=== PATIENT | female | born 1995 | race American Indian/Alaskan Native ===

== ENCOUNTER 2022-04-16 11:28 | Emergency (ER) | payer SELFPAY ==
[2022-04-16] MEDS ORDERED: KETOROLAC 10 MG TAB PO ONE ×2 (12:11→15:00)
[2022-04-16] MEDS ORDERED: oxyCODONE /ACETAMINOPHEN 5-325MG TAB PO ONE ×2 (12:12→15:00)
[2022-04-16] MEDS ORDERED: dexAMETHasone 4 MG/ML VIAL PO ONE ×2 (12:12→15:00)
[2022-04-16] MEDS ORDERED: AMOXICILLIN/K CLAV 875/125MG TAB PO ONE ×2 (12:12→15:00)
--- NOTE | 2022-04-16 12:56 | Emergency Department Report ---
ED ENT HPI - General Chief complaint: Sore Throat Stated complaint: MOUTH/THROAT INFECTION Time Seen by Provider: 04/16/22 12:10 Source: patient Mode of arrival: Ambulatory Limitations: No Limitations - History of Present Illness Initial comments: 26-year-old black female with no past medical history presents to the emergency department for evaluation of tooth ache with pain and swelling to left side of jaw. She states that she has an impacted wisdom tooth but has not been able to get it taken out. She denies fever. MD complaint: tooth pain -: Gradual, days(s) (2-3) Location: tooth # (17) Severity: severe Severity scale (0 -10): 10 Quality: aching Consistency: constant Associated Symptoms: gum swelling, toothache, sore throat. denies: fever, cough, pain with swallowing, tinnitus, hearing loss, discharge from ear, rhinorrhea - Related Data Previous Rx's Medication Instructions Recorded Last Taken Type Acetaminophen/Codeine [Tylenol 1 tab PO Q6H PRN #12 tab 04/16/22 Unknown Rx /Codeine # 3 tab] Amoxicillin/K Clav Tab [Augmentin 1 tab PO BID #14 tab 04/16/22 Unknown Rx 875 mg] Ketorolac [Toradol] 10 mg PO Q6H PRN #12 04/16/22 Unknown Rx Allergies Allergy/AdvReac Type Severity Reaction Status Date / Time No Known Allergies Allergy Verified 04/16/22 14:20 ED Dental HPI - General Chief complaint: Sore Throat Stated complaint: MOUTH/THROAT INFECTION Time Seen by Provider: 04/16/22 12:10 Source: patient Mode of arrival: Ambulatory Limitations: No Limitations - History of Present Illness Dental Associated Symptons: Yes: Headache, Earache, Sore Throat, Gum Swelling. No: Fever - Related Data Previous Rx's Medication Instructions Recorded Last Taken Type Acetaminophen/Codeine [Tylenol 1 tab PO Q6H PRN #12 tab 04/16/22 Unknown Rx /Codeine # 3 tab] Amoxicillin/K Clav Tab [Augmentin 1 tab PO BID #14 tab 04/16/22 Unknown Rx 875 mg] Ketorolac [Toradol] 10 mg PO Q6H PRN #12 04/16/22 Unknown Rx Allergies Allergy/AdvReac Type Severity Reaction Status Date / Time No Known Allergies Allergy Verified 04/16/22 14:20 ED Review of Systems ROS: Stated complaint: MOUTH/THROAT INFECTION Other details as noted in HPI Comment: All other systems reviewed and negative Constitutional: denies: chills, fever, malaise, weakness Eyes: denies: vision change ENT: throat pain, dental pain Respiratory: denies: shortness of breath Cardiovascular: denies: chest pain, palpitations Gastrointestinal: denies: abdominal pain, nausea, vomiting Musculoskeletal: denies: back pain Skin: denies: rash Neurological: denies: headache, weakness ED Past Medical Hx - Past Medical History Previous Medical History?: No - Surgical History Past Surgical History?: No - Social History Smoking Status: Never Smoker - Medications Home Medications: Home Medications Medication Instructions Recorded Confirmed Last Taken Type Acetaminophen/Codeine [Tylenol 1 tab PO Q6H PRN #12 tab 04/16/22 Unknown Rx /Codeine # 3 tab] Amoxicillin/K Clav Tab [Augmentin 1 tab PO BID #14 tab 04/16/22 Unknown Rx 875 mg] Ketorolac [Toradol] 10 mg PO Q6H PRN #12 04/16/22 Unknown Rx ED Physical Exam - General Limitations: No Limitations General appearance: alert, in no apparent distress - Head Head exam: Present: atraumatic, normocephalic - Eye Eye exam: Present: normal appearance. Absent: conjunctival injection - Expanded ENT Exam Expanded Teeth exam: Present: dental tenderness # (17), gingival enlargement, other (Erythema, swelling, and abscess noted to gums around tooth #17) - Neck Neck exam: Present: normal inspection. Absent: lymphadenopathy - Respiratory Respiratory exam: Present: normal lung sounds bilaterally. Absent: respiratory distress, wheezes, rales, rhonchi, stridor - Cardiovascular Cardiovascular Exam: Present: regular rate, normal heart sounds - GI/Abdominal GI/Abdominal exam: Present: soft, normal bowel sounds. Absent: distended, tenderness, guarding, rebound, rigid - Back Exam Back exam: Present: normal inspection - Neurological Exam Neurological exam: Present: alert, oriented X3, normal gait - Psychiatric Psychiatric exam: Present: normal affect, normal mood - Skin Skin exam: Present: warm, dry, intact, normal color ED Course Vital Signs 04/16/22 04/16/22 12:08 16:09 Temperature 98.7 F 98.4 F Pulse Rate 95 H 64 Respiratory 14 16 Rate Blood Pressure 131/89 Blood Pressure 136/88 [Left] O2 Sat by Pulse 98 100 Oximetry ED Medical Decision Making - Medical Decision Making 26-year-old black female with no past medical history presents to the emergency department for evaluation of tooth ache with pain and swelling to left side of jaw. She states that she has an impacted wisdom tooth but has not been able to get it taken out. She denies fever. Exam consistent with dental abscess. Patient will be treated with 7-day course of Augmentin along with Toradol and Tylenol to use as needed for pain. She is advised to follow-up with dentist for further evaluation and management and return to the emergency department as needed. She verbalizes understanding of and agreement with plan of care. Critical care attestation.: If time is entered above; I have spent that time in minutes in the direct care of this critically ill patient, excluding procedure time. ED Disposition Clinical Impression: Dental abscess Disposition: 01 HOME / SELF CARE / HOMELESS Is pt being admited?: No Does the pt Need Aspirin: No Condition: Stable Instructions: Dental Abscess, [id number] Additional Instructions: Take medications as prescribed. Follow-up with dentist for further evaluation and management. Return to the emergency department as needed. Prescriptions: Amoxicillin/K Clav Tab [Augmentin 875 mg] 1 tab PO BID #14 tab Ketorolac [Toradol] 10 mg PO Q6H PRN #12 PRN Reason: Pain Acetaminophen/Codeine [Tylenol /Codeine # 3 tab] 1 tab PO Q6H PRN #12 tab PRN Reason: Pain , Severe (7-10) Referrals: [facility] [Outside] - 3-5 Days [facility] [Outside] - 3-5 Days Forms: Work/School Release Form(ED) Time of Disposition: 12:56
[2022-04-16 16:11] VITALS: BP 136/88
== END 2022-04-16 16:09 | disposition home or self-care (01) ==
LOC: ED 11:28
DX: K04.7 Periapical abscess without sinus (principal); Z79.899 Other long term (current) drug therapy
CPT/HCPCS: 99282; J1100

== ENCOUNTER 2022-04-25 15:11 | Emergency (ER) | payer SELFPAY ==
[2022-04-25 16:33] VITALS: BP 146/88
--- NOTE | 2022-04-25 18:26 | Emergency Department Report ---
- General Chief Complaint: Upper Respiratory Infection Stated Complaint: FLU SYMPTOMS Time Seen by Provider: 04/25/22 17:39 Source: patient Mode of arrival: Ambulatory Limitations: No Limitations - History of Present Illness Initial Comments: Diagnosed with pharyngitis on 16 April took a round of amoxicillin which did cause little little diarrhea and upset stomach which is now resolved during that time she missed few days of work and presents emerged department seeking work note primarily. Has some mild congestion but no hemoptysis no hematemesis hematochezia, no headache no fever, chills, sweats. MD Complaint: sore throat, nasal congestion Improves With: nothing Worsens With: nothing Associated Symptoms: sore throat Treatments Prior to Arrival: antibiotics - Related Data Previous Rx's Medication Instructions Recorded Last Taken Type Acetaminophen/Codeine [Tylenol 1 tab PO Q6H PRN #12 tab 04/16/22 Unknown Rx /Codeine # 3 tab] Amoxicillin/K Clav Tab [Augmentin 1 tab PO BID #14 tab 04/16/22 Unknown Rx 875 mg] Ketorolac [Toradol] 10 mg PO Q6H PRN #12 04/16/22 Unknown Rx Allergies Allergy/AdvReac Type Severity Reaction Status Date / Time No Known Allergies Allergy Verified 04/16/22 14:20 ED Review of Systems ROS: Stated complaint: FLU SYMPTOMS Other details as noted in HPI Comment: All other systems reviewed and negative ED Past Medical Hx - Social History Smoking Status: Never Smoker - Medications Home Medications: Home Medications Medication Instructions Recorded Confirmed Last Taken Type Acetaminophen/Codeine [Tylenol 1 tab PO Q6H PRN #12 tab 04/16/22 Unknown Rx /Codeine # 3 tab] Amoxicillin/K Clav Tab [Augmentin 1 tab PO BID #14 tab 04/16/22 Unknown Rx 875 mg] Ketorolac [Toradol] 10 mg PO Q6H PRN #12 04/16/22 Unknown Rx ED Physical Exam - General Limitations: No Limitations ED Course Vital Signs 04/25/22 16:29 Temperature 98.0 F Pulse Rate 62 Blood Pressure 146/88 [Left] O2 Sat by Pulse 100 Oximetry ED Medical Decision Making - Medical Decision Making This 26-year-old patient presents with symptoms suspicious for likely viral upper respiratory tract infection. Differential includes bacterial pneumonia, sinusitis, allergic rhinitis, URI. Do not suspect underlying Cardiopulmonary process. I considered but think unlikely dangerous cause of this patient symptoms to include acute coronary syndrome, CHF or COPD exacerbations, pneumonia, pneumothorax. Patient is nontoxic appearing and not in need of emergent medical intervention. Plan: Reassurance, reassessment, [id number] medications, discharge with P CP follow-up Critical care attestation.: If time is entered above; I have spent that time in minutes in the direct care of this critically ill patient, excluding procedure time. ED Disposition Clinical Impression: URI (upper respiratory infection) Disposition: 01 HOME / SELF CARE / HOMELESS Is pt being admited?: No Does the pt Need Aspirin: No Condition: Stable Instructions: Cool Mist Vaporizer, Upper Respiratory Infection, Adult Referrals: [facility] [Provider Group] - 3-5 Days Forms: Work/School Release Form(ED)
== END 2022-04-25 19:50 | disposition home or self-care (01) ==
LOC: ED 15:11
DX: J06.9 Acute upper respiratory infection, unspecified (principal)
CPT/HCPCS: 99282

== ENCOUNTER 2022-05-01 14:04 | Emergency (ER) | payer SELFPAY ==
[2022-05-01 16:12] VITALS: BP 116/75
[2022-05-01 18:24] LABS: HCG Qualitative,Urine Negative (Negative)
[2022-05-01 18:34] LABS: Bacteria,Urine 1+ /HPF (Negative); Mucus,Urine FEW /HPF
[2022-05-01 18:51] LABS: Color,Urine Straw (Yellow)
--- NOTE | 2022-05-01 18:56 | Emergency Department Report ---
ED Female HPI - General Chief complaint: Urogenital-Female Stated complaint: BLOOD IN URINE/PAIN Time Seen by Provider: 05/01/22 16:36 Source: patient Mode of arrival: Ambulatory Limitations: No Limitations - History of Present Illness Initial comments: 26-year-old female presents with urinary frequency and pain x2 days. Denies being , denies any vaginal discharge, no nausea or vomiting, no flank pain, no hematuria, no fever chills, no chest pain no cough cold congestion headache weakness dizziness or any other associating symptoms. - Related Data Previous Rx's Medication Instructions Recorded Last Taken Type Acetaminophen/Codeine [Tylenol 1 tab PO Q6H PRN #12 tab 04/16/22 Unknown Rx /Codeine # 3 tab] Amoxicillin/K Clav Tab [Augmentin 1 tab PO BID #14 tab 05/01/22 Unknown Rx 875MG TAB] Ketorolac [Toradol] 10 mg PO Q6H PRN #12 05/01/22 Unknown Rx Phenazopyridine [Pyridium] 200 mg PO BID #6 tab 05/01/22 Unknown Rx Allergies Allergy/AdvReac Type Severity Reaction Status Date / Time No Known Allergies Allergy Verified 04/16/22 14:20 ED Review of Systems ROS: Stated complaint: BLOOD IN URINE/PAIN Other details as noted in HPI Cardiovascular: as per HPI Gastrointestinal: as per HPI. denies: abdominal pain, nausea, vomiting Genitourinary: urgency, dysuria Musculoskeletal: denies: back pain Neurological: denies: headache, weakness ED Past Medical Hx - Social History Smoking Status: Never Smoker - Medications Home Medications: Home Medications Medication Instructions Recorded Confirmed Last Taken Type Acetaminophen/Codeine [Tylenol 1 tab PO Q6H PRN #12 tab 04/16/22 Unknown Rx /Codeine # 3 tab] Amoxicillin/K Clav Tab [Augmentin 1 tab PO BID #14 tab 05/01/22 Unknown Rx 875MG TAB] Ketorolac [Toradol] 10 mg PO Q6H PRN #12 05/01/22 Unknown Rx Phenazopyridine [Pyridium] 200 mg PO BID #6 tab 05/01/22 Unknown Rx ED Physical Exam - General Limitations: No Limitations General appearance: alert, in no apparent distress - Head Head exam: Present: atraumatic - Eye Eye exam: Present: normal appearance - ENT ENT exam: Present: normal exam, normal orophraynx - Neck Neck exam: Present: normal inspection. Absent: tenderness - Respiratory Respiratory exam: Present: normal lung sounds bilaterally. Absent: respiratory distress, chest wall tenderness - Cardiovascular Cardiovascular Exam: Present: regular rate, normal rhythm - GI/Abdominal GI/Abdominal exam: Present: soft. Absent: distended, tenderness - Extremities Exam Extremities exam: Present: normal inspection, full ROM - Back Exam Back exam: Present: normal inspection, full ROM. Absent: tenderness, CVA tenderness (R), CVA tenderness (L) - Neurological Exam Neurological exam: Present: alert, oriented X3, normal gait - Psychiatric Psychiatric exam: Present: normal affect, normal mood - Skin Skin exam: Present: warm, dry, intact ED Course Vital Signs 05/01/22 16:05 Temperature 98.9 F Pulse Rate 67 Respiratory 14 Rate Blood Pressure 116/75 [Right] O2 Sat by Pulse 100 Oximetry ED Medical Decision Making - Lab Data Laboratory Results - last 24 hr 05/01/22 17:50 Urine Color Straw Urine Turbidity Hazy Specific [place] (Man) 1.005 Ur Protein (Man) 2+ Ur Ketones (Man) Negative Urine Bilirubin (Man) Negative Urine WBC (Auto) 96.0 H Urine RBC (Auto) 16.0 U Epithel Cells (Auto) 1.0 Urine Bacteria (Auto) 1+ Urine RBC (Manual) 4+ Urine Mucus Few Urine HCG, Qual Negative - Medical Decision Making 26-year-old female presents with urinary frequency and pain x2 days. Denies being , denies any vaginal discharge, no nausea or vomiting, no flank pain, no hematuria, no fever chills, no chest pain no cough cold congestion headache weakness dizziness or any other associating symptoms. Urinalysis is positive for leukocytes, WBC, bacteria, RBC, coupled with her symptoms we will treat for acute cystitis with Augmentin, urine culture, and outpatient follow-up with Unable to locate patient left before properly [id number] Critical care attestation.: If time is entered above; I have spent that time in minutes in the direct care of this critically ill patient, excluding procedure time. ED Disposition Clinical Impression: Acute cystitis Disposition: HOME / SELF CARE / HOMELESS Is pt being admited?: No Does the pt Need Aspirin: No Condition: Stable Instructions: Urinary Tract Infection, Adult Prescriptions: Amoxicillin/K Clav Tab [Augmentin 875MG TAB] 1 tab PO BID #14 tab Ketorolac [Toradol] 10 mg PO Q6H PRN #12 PRN Reason: Pain
== END 2022-05-01 19:33 | disposition left against medical advice (07) ==
LOC: ED 14:04
DX: N30.00 Acute cystitis without hematuria (principal); Z79.899 Other long term (current) drug therapy
CPT/HCPCS: 81001; 81025; 87076; 87086; 87186; 99283

== ENCOUNTER 2022-06-08 07:57 | Emergency (ER) | payer SELFPAY ==
[2022-06-09] MEDS ORDERED: ROCURONIUM 50 MG/5 ML INJ IV ONE (15:52)
== END 2022-06-08 23:36 | disposition left against medical advice (07) ==
LOC: ED 07:57
DX: R29.810 Facial weakness (principal); Z53.21 Procedure and treatment not carried out due to patient leaving prior to being seen by health care provider
CPT/HCPCS: J3490

== ENCOUNTER 2022-06-10 18:04 | Emergency (ER) | payer SELFPAY ==
--- NOTE | 2022-06-10 23:35 | Cat Scan Report ---
CT HEAD WITHOUT CONTRAST INDICATION / CLINICAL INFORMATION: left facial weakness. TECHNIQUE: All CT scans at this location are performed using CT dose reduction for ALARA by means of automated exposure control. COMPARISON: None available. FINDINGS: CEREBRAL/CEREBELLAR PARENCHYMA: The cerebral and cerebellar hemispheres are normal for age. No CT ximena dence for an acute or subacute territorial infarct. HEMORRHAGE: No acute intra-axial hemorrhage or extra-axial fluid collection. MASS: No mass or mass effect. VENTRICULAR SYSTEM: Normal in size and morphology for the patient's age. ORBITS: No acute process. SOFT TISSUES/SKULL: Nonspecific right frontal vertex scalp lesion or contusion without underlying sku ll abnormality. Please see the saved bearden image on [employer] PACS. PARANASAL SINUSES/MASTOID AIR CELLS: Normal as visualized. IMPRESSION: 1. No acute intracranial process. 2. Nonspecific right frontal vertex scalp lesion or contusion without underlying skull abnormality. P lease see the saved bearden image on [employer] PACS. Correlation with clinical history and physical exam recommended. Signer Name: Rc Qureshi MD Signed: 06/10/2022 11:31 PM Workstation Name: [id number]
[2022-06-10] MEDS ORDERED: HYDROcodone/ACETAMINOPHEN 5-325 MG TAB PO ONE (23:40)
--- NOTE | 2022-06-10 23:49 | Emergency Department Report ---
ED General Adult HPI - General Chief complaint: Neuro Symptoms/Deficit Stated complaint: FACIAL PAIN Time Seen by Provider: 06/10/22 22:57 Source: patient Mode of arrival: Ambulatory Limitations: No Limitations - History of Present Illness Initial comments: 26-year-old [place] female Alexandre emerged from complaining of continued tenderness and tingling to the left side of her face with facial weakness which is been going on for about the last 5 days. She presented to emergency department 3 days ago but was not seen due to the wait time in follow-up today due to the tingling and burning pain to the strong suspicion for Barnes's palsy and just wants to be evaluated and treated with anything that may help her symptoms. She reports no fever, chills, sweats. No odynophagia or dysphagia. Severity scale (0 -10): 2 Worsens with: none Associated Symptoms: denies other symptoms Treatments Prior to Arrival: none - Related Data Previous Rx's Medication Instructions Recorded Last Taken Type Acetaminophen/Codeine [Tylenol 1 tab PO Q6H PRN #12 tab 04/16/22 Unknown Rx /Codeine # 3 tab] Amoxicillin/K Clav Tab [Augmentin 1 tab PO BID #14 tab 05/01/22 Unknown Rx 875MG TAB] Ketorolac [Toradol] 10 mg PO Q6H PRN #12 05/01/22 Unknown Rx Phenazopyridine [Pyridium] 200 mg PO BID #6 tab 05/01/22 Unknown Rx Acyclovir [Zovirax Tab] 800 mg PO 5XD #40 06/10/22 Unknown Rx predniSONE [Deltasone] 20 mg PO QDAY #7 tab 06/10/22 Unknown Rx Allergies Allergy/AdvReac Type Severity Reaction Status Date / Time No Known Allergies Allergy Verified 06/08/22 08:32 ED Review of Systems ROS: Stated complaint: FACIAL PAIN Other details as noted in HPI Comment: All other systems reviewed and negative ED Past Medical Hx - Past Medical History Previous Medical History?: No - Surgical History Past Surgical History?: No - Social History Smoking Status: Never Smoker - Medications Home Medications: Home Medications Medication Instructions Recorded Confirmed Last Taken Type Acetaminophen/Codeine [Tylenol 1 tab PO Q6H PRN #12 tab 04/16/22 Unknown Rx /Codeine # 3 tab] Amoxicillin/K Clav Tab [Augmentin 1 tab PO BID #14 tab 05/01/22 Unknown Rx 875MG TAB] Ketorolac [Toradol] 10 mg PO Q6H PRN #12 05/01/22 Unknown Rx Phenazopyridine [Pyridium] 200 mg PO BID #6 tab 05/01/22 Unknown Rx Acyclovir [Zovirax Tab] 800 mg PO 5XD #40 06/10/22 Unknown Rx predniSONE [Deltasone] 20 mg PO QDAY #7 tab 06/10/22 Unknown Rx ED Physical Exam - General Limitations: No Limitations General appearance: alert, in no apparent distress - Head Head exam: Present: atraumatic, normocephalic, other (Left facial weakness with the forehead involved.) - Eye Eye exam: Present: normal appearance, PERRL, other (Ears are clear no signs of any lesions or Kirkman Juan) Pupils: Present: normal accommodation - ENT ENT exam: Present: normal exam, normal orophraynx, mucous membranes moist, TM's normal bilaterally - Neck Neck exam: Present: normal inspection, lymphadenopathy (Left tonsil) - Respiratory Respiratory exam: Present: normal lung sounds bilaterally. Absent: respiratory distress, wheezes, rales - Cardiovascular Cardiovascular Exam: Present: regular rate, normal rhythm. Absent: systolic murmur, diastolic murmur, rubs, gallop - GI/Abdominal GI/Abdominal exam: Present: soft, normal bowel sounds - Extremities Exam Extremities exam: Present: normal inspection, normal capillary refill - Back Exam Back exam: Present: normal inspection. Absent: CVA tenderness (R), CVA tenderness (L), muscle spasm, paraspinal tenderness - Neurological Exam Neurological exam: Present: alert, oriented X3, CN II-XII intact, normal gait. Absent: motor sensory deficit - Psychiatric Psychiatric exam: Present: normal affect, normal mood. Absent: anxious, flat affect, manic, suicidal ideation - Skin Skin exam: Present: warm, dry, intact, normal color. 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 Advised on primary care doctor follow-up within the next week and follow-up with neurologist if symptoms continue to persist after 2 weeks and advised her that recovery can take longer. Since it is within 72 hours of onset will also give prednisone daily for 5 days Critical care attestation.: If time is entered above; I have spent that time in minutes in the direct care of this critically ill patient, excluding procedure time. ED Disposition Clinical Impression: Barnes's palsy Disposition: HOME / SELF CARE / HOMELESS Is pt being admited?: No Does the pt Need Aspirin: No Condition: Stable Instructions: Barnes Palsy, Adult Additional Instructions: You have a condition called [place] Palsy. You will be prescribed several medications to help alleviate this disease. 1)Please take the steroid PREDNISONE once a day for the next 7 day. 2)Please take the antiviral medication as directed. 3)Please use the artificial tears as directed. 4)Please tape the affected eye shut at night. This will prevent your eyes from drying out and potentinally developing a deep scratch called an ulcer.Follow up with Neurology within 3-5 days. Please take Prednisone for the next 7 days. ? Please take acyclovir as prescribed or valacyclovir 1000mg three times a day for 7 more days. ?Apply eye drops every 2 hours and tape your eye closed when you are asleep. ?Please return to the Emergency Department for any new or worsening symptoms. Prescriptions: predniSONE [Deltasone] 20 mg PO QDAY #7 tab Acyclovir [Zovirax Tab] 800 mg PO 5XD #40 Referrals: DEL LÓPEZ MD [Primary Care Provider] - 3-5 Days
[2022-06-11 00:36] VITALS: BP 129/80
== END 2022-06-11 00:37 | disposition home or self-care (01) ==
LOC: ED 18:04
DX: G51.0 Bell's palsy (principal)
CPT/HCPCS: 70450; 99283